=== PATIENT | male | born 1965 | race African-American/Black ===

== ENCOUNTER 2024-12-03 14:11 | Emergency (ER) | payer OTHER, MEDICARE ==
[~2024-12-03] VITALS: Ht 203.2 cm; Wt 82.0 kg
[~2024-12-03 14:11] MED LIST: DIPH25CA83 PO
[2024-12-03 14:12] VITALS: O2SAT 98
[2024-12-03 14:16] VITALS: BP 122/69; PULSE 120; RESP 18; TEMP 36.9; O2SAT 99
== END 2024-12-03 15:13 | disposition left against medical advice (07) ==
LOC: ER 14:11
DX: Z48.02 Encounter for removal of sutures (principal); Z53.21 Procedure and treatment not carried out due to patient leaving prior to being seen by health care provider